=== PATIENT | male | born 1995 | race African-American/Black ===

== ENCOUNTER 2016-11-13 19:14 | Emergency (ER) | payer OTHER ==
--- NOTE | 2016-11-13 20:17 | EDDOCDS ---
Physician Documentation [facility] Name: Errol Rudd Age: 21 yrs Sex: Male : 1995 Arrival Date: 11/13/2016 Time: 19:14 Bed Triage 1 Private MD: Other - Complete Info On Cds Disposition: 11/13/16 20:11 Discharged to Home/Self Care. Impression: Encounter for issue of repeat prescription. - Condition is Stable. - Discharge Instructions: Medicine Refill at the Emergency Department. - Prescriptions for Seroquel 25 mg Oral tablet - take 1 tablet by ORAL route at bedtime; 3 tablet. - Medication Reconciliation, Local Pharmacy Hours form. - Follow up: Hugh Cristobal [facility]; When: 2 - 3 days; Reason: Recheck today's complaints, Continuance of care. - Problem is new. - Symptoms have improved. - Notes: FOLLOW UP WITH YOUR DOCTOR ON WEDNESDAY Historical: - Allergies: no known allergies; - Home Meds: 1. Seroquel 25 mg Oral tab 1 tab bedtime (Last dose: 11/12/2016 20:00) - PMHx: Anxiety; - PSHx: none; - Social history: Smoking status: Patient states was never smoker of tobacco. Patient/guardian denies using alcohol, street drugs, No barriers to communication noted, The patient speaks fluent Ghanaian, Speaks appropriately for age. - Family history: No immediate family members are acutely ill. - : The pt / caregiver states he / she is not on anticoagulants. Home medication list is obtained from the patient. - Exposure Risk Screening:: None identified. Vital Signs: 11/13 19:17 BP 122 / 71; Pulse 88; Resp 16; Temp 96.4(T); Pulse Ox 100% on R/A; Weight 89.54 kg / sew 197.4 lbs (M); Height 5 ft. 10 in. (177.80 cm); Pain 0/10; 19:17 Body Mass Index 28.32 (89.54 kg, 177.80 cm) sew Signatures: Philipp Chairez, RPA-C RPA-Cck7 Stefany Rodriguez RN RN ttb Francisco Savage RN RN nn1 MTDD
--- NOTE | 2016-11-13 20:17 | EDDOCDS ---
Nurse's Notes [facility] Name: Errol Rudd Age: 21 yrs Sex: Male : 1995 Arrival Date: 11/13/2016 Time: 19:14 Bed Triage 1 Private MD: Adan - Complete Info On Cds Diagnosis: Encounter for issue of repeat prescription Presentation: 11/13 19:35 Presenting complaint: Patient states: refill of seroquel needed. Pt sees PA at [facility] and told to get refill when needed. Closed now. Adult Sepsis Screening: The patient does not have new or worsening altered mentation. Patient's respiratory rate is less than 22. Systolic blood pressure is greater than 100. Patient has a qSOFA score of 0- Negative Sepsis Screen. Suicide/Homicide risk assessment- the patient denies having any suicidal and/or homicidal ideations and does not present with any other emotional, behavioral or mental health complaints. 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 Transition of care: patient was not received from another setting of care. 19:35 Acuity: AQUILES Level 5 ttb 19:35 Method Of Arrival: Walkin/Carried/Asstd ttb Triage Assessment: 19:36 General: Appears in no apparent distress, well nourished, well groomed, Behavior is ttb appropriate for age, cooperative, pleasant. Pain: Denies pain. HIV screening NA for this visit Offered previously. Neurological: Level of Consciousness is awake, alert. Cardiovascular: Chest pain is denied. Respiratory: No deficits noted. Derm: Skin is normal. Historical: - Allergies: no known allergies; - Home Meds: 1. Seroquel 25 mg Oral tab 1 tab bedtime (Last dose: 11/12/2016 20:00) - PMHx: Anxiety; - PSHx: none; - Social history: Smoking status: Patient states was never smoker of tobacco. Patient/guardian denies using alcohol, street drugs, No barriers to communication noted, The patient speaks fluent Mauritanian, Speaks appropriately for age. - Family history: No immediate family members are acutely ill. - : The pt / caregiver states he / she is not on anticoagulants. Home medication list is obtained from the patient. - Exposure Risk Screening:: None identified. Screenin:15 Screening information is obtained from the patient. Fall risk: No risks identified. nn1 Assistance ADL's: requires no assistance with activities of daily living. Abuse/DV Screen: The patient / caregiver reports he/she is: not in a situation that causes fear, pain or injury. Nutritional screening: No deficits noted. Advance Directives: There is no active DNR order. home support is adequate. Assessment: 20:14 General: Appears in no apparent distress, comfortable, Behavior is appropriate for age, nn1 cooperative. Pain: Denies pain. Neurological: Level of Consciousness is awake, alert, obeys commands, Oriented to person, place, time. Respiratory: Airway is patent Respiratory effort is even, unlabored, Respiratory pattern is regular, symmetrical. Derm: Skin is pink, warm & dry. Vital Signs: 19:17 BP 122 / 71; Pulse 88; Resp 16; Temp 96.4(T); Pulse Ox 100% on R/A; Weight 89.54 kg sew (M); Height 5 ft. 10 in. (177.80 cm); Pain 0/10; 19:17 Body Mass Index 28.32 (89.54 kg, 177.80 cm) [facility] Vitals: 19:17 Log In Time: November 13, 2016 at 19:12. [facility] ED Course: 19:16 Patient visited by Annabel Weiss. sew 19:16 Patient moved to Waiting sew 19:17 Other - Complete Info On Cds is Private Physician. sew 19:18 Patient visited by Annabel Weiss. sew 19:18 Patient moved to Pre RCE sew 19:35 Triage Initiated ttb 19:38 Patient moved to Triage 1 ttb 19:57 [facility] ck7 19:57 Regino Matute DO is Attending Physician. ck7 19:58 Patient visited by Philipp Chairez RPA-C. ck7 20:11 Hugh Cristobal [facility] is Referral Physician. ck7 20:15 No IV's were initiated during this patient's visit. No procedures done that require nn1 assistance. 20:16 The patient / caregiver is instructed regarding the plan of care and ED course. nn1 Order Results: There are currently no results for this order. Outcome: 20:11 Discharge ordered by Provider. ck7 20:15 Discharge Assessment: Patient awake, alert and oriented x 3. No cognitive and/or nn1 functional deficits noted. Patient verbalized understanding of disposition instructions. patient administered narcotics - no. The following High Risk Discharge criteria are identified: None. Discharged to home ambulatory. Condition: good Condition: stable. No special radiology studies were completed. Property :Personal belongings accompany Pt. 20:16 Patient left the ED. nn1 Signatures: Philipp Chairez, GRACEC RPA-Cck7 Annabel Weiss Teresa, RN RN Francisco GeeRN RN nn1 MTDD
--- NOTE | 2016-11-15 21:17 | EDDOCDS ---
Physician Documentation [facility] Name: Errol Rudd Age: 21 yrs Sex: Male : 1995 Arrival Date: 11/13/2016 Time: 19:14 Bed Triage 1 Private MD: Adan - Complete Info On Cds Disposition: 11/13/16 20:11 Discharged to Home/Self Care. Impression: Encounter for issue of repeat prescription. - Condition is Stable. - Discharge Instructions: Medicine Refill at the Emergency Department. - Prescriptions for Seroquel 25 mg Oral tablet - take 1 tablet by ORAL route at bedtime; 3 tablet. - Medication Reconciliation, Local Pharmacy Hours form. - Follow up: Hugh Cristobal [facility]; When: 2 - 3 days; Reason: Recheck today's complaints, Continuance of care. - Problem is new. - Symptoms have improved. - Notes: FOLLOW UP WITH YOUR DOCTOR ON WEDNESDAY Historical: - Allergies: no known allergies; - Home Meds: 1. Seroquel 25 mg Oral tab 1 tab bedtime (Last dose: 11/12/2016 20:00) - PMHx: Anxiety; - PSHx: none; - Social history: Smoking status: Patient states was never smoker of tobacco. Patient/guardian denies using alcohol, street drugs, No barriers to communication noted, The patient speaks fluent Honduran, Speaks appropriately for age. - Family history: No immediate family members are acutely ill. - : The pt / caregiver states he / she is not on anticoagulants. Home medication list is obtained from the patient. - Exposure Risk Screening:: None identified. Vital Signs: 11/13 19:17 BP 122 / 71; Pulse 88; Resp 16; Temp 96.4(T); Pulse Ox 100% on R/A; Weight 89.54 kg / sew 197.4 lbs (M); Height 5 ft. 10 in. (177.80 cm); Pain 0/10; 19:17 Body Mass Index 28.32 (89.54 kg, 177.80 cm) sew MDM: 11/14 11:32 T-Sheet-- Draft Copy was scanned into [employer] and attached to record. gb Signatures: Mary Freeman, Reg Reg gb Philipp Chairez, RPA-C RPA-Cck7 Stefany Rodriguez, RN RN ttb Francisco Savage RN RN nn1 The chart was reviewed and I authenticate all verbal orders and agree with the evaluation and treatment provided.Attachments: 11:32 T-Sheet-- Draft Copy gb Chart Complete MTDD
--- NOTE | 2016-11-15 21:17 | EDDOCDS ---
Nurse's Notes [facility] Name: Errol Rudd Age: 21 yrs Sex: Male : 1995 Arrival Date: 11/13/2016 Time: 19:14 Bed Triage 1 Private MD: Adan - Complete Info On Cds Diagnosis: Encounter for issue of repeat prescription Presentation: 11/13 19:35 Presenting complaint: Patient states: refill of seroquel needed. Pt sees PA at [facility] and told to get refill when needed. Closed now. Adult Sepsis Screening: The patient does not have new or worsening altered mentation. Patient's respiratory rate is less than 22. Systolic blood pressure is greater than 100. Patient has a qSOFA score of 0- Negative Sepsis Screen. Suicide/Homicide risk assessment- the patient denies having any suicidal and/or homicidal ideations and does not present with any other emotional, behavioral or mental health complaints. 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 Transition of care: patient was not received from another setting of care. 19:35 Acuity: AQUILES Level 5 ttb 19:35 Method Of Arrival: Walkin/Carried/Asstd ttb Triage Assessment: 19:36 General: Appears in no apparent distress, well nourished, well groomed, Behavior is ttb appropriate for age, cooperative, pleasant. Pain: Denies pain. HIV screening NA for this visit Offered previously. Neurological: Level of Consciousness is awake, alert. Cardiovascular: Chest pain is denied. Respiratory: No deficits noted. Derm: Skin is normal. Historical: - Allergies: no known allergies; - Home Meds: 1. Seroquel 25 mg Oral tab 1 tab bedtime (Last dose: 11/12/2016 20:00) - PMHx: Anxiety; - PSHx: none; - Social history: Smoking status: Patient states was never smoker of tobacco. Patient/guardian denies using alcohol, street drugs, No barriers to communication noted, The patient speaks fluent Persian, Speaks appropriately for age. - Family history: No immediate family members are acutely ill. - : The pt / caregiver states he / she is not on anticoagulants. Home medication list is obtained from the patient. - Exposure Risk Screening:: None identified. Screenin:15 Screening information is obtained from the patient. Fall risk: No risks identified. nn1 Assistance ADL's: requires no assistance with activities of daily living. Abuse/DV Screen: The patient / caregiver reports he/she is: not in a situation that causes fear, pain or injury. Nutritional screening: No deficits noted. Advance Directives: There is no active DNR order. home support is adequate. Assessment: 20:14 General: Appears in no apparent distress, comfortable, Behavior is appropriate for age, nn1 cooperative. Pain: Denies pain. Neurological: Level of Consciousness is awake, alert, obeys commands, Oriented to person, place, time. Respiratory: Airway is patent Respiratory effort is even, unlabored, Respiratory pattern is regular, symmetrical. Derm: Skin is pink, warm & dry. Vital Signs: 19:17 BP 122 / 71; Pulse 88; Resp 16; Temp 96.4(T); Pulse Ox 100% on R/A; Weight 89.54 kg sew (M); Height 5 ft. 10 in. (177.80 cm); Pain 0/10; 19:17 Body Mass Index 28.32 (89.54 kg, 177.80 cm) [facility] Vitals: 19:17 Log In Time: November 13, 2016 at 19:12. sew ED Course: 19:16 Patient visited by Annabel Weiss. sew 19:16 Patient moved to Waiting sew 19:17 Other - Complete Info On Cds is Private Physician. sew 19:18 Patient visited by Annabel Weiss. sew 19:18 Patient moved to Pre RCE sew 19:35 Triage Initiated ttb 19:38 Patient moved to Triage 1 ttb 19:57 [facility] 19:57 Regino Matute DO is Attending Physician. ck7 19:58 Patient visited by Philipp Chairez RPA-C. ck7 20:11 Hugh Cristobal [facility] is Referral Physician. ck7 20:15 No IV's were initiated during this patient's visit. No procedures done that require nn1 assistance. 20:16 The patient / caregiver is instructed regarding the plan of care and ED course. nn1 11/14 11:32 T-Sheet-- Draft Copy was scanned into [employer] and attached to record. gb Order Results: There are currently no results for this order. Outcome: 02/10 20:11 Discharge ordered by Provider. ck7 20:15 Discharge Assessment: Patient awake, alert and oriented x 3. No cognitive and/or nn1 functional deficits noted. Patient verbalized understanding of disposition instructions. patient administered narcotics - no. The following High Risk Discharge criteria are identified: None. Discharged to home ambulatory. Condition: good Condition: stable. No special radiology studies were completed. Property :Personal belongings accompany Pt. 20:16 Patient left the ED. nn1 Signatures: Mary Freeman, Reg Reg Philipp Davenport, RPA-C RPA-Cck7 Annabel Weiss Teresa, RN RN ttb Francisco SavageRN RN nn1 Chart Complete MTDD
--- NOTE | 2016-11-15 21:17 | EDDOCDS ---
Physician Documentation [facility] Name: Errol Rudd Age: 21 yrs Sex: Male : 1995 Arrival Date: 11/13/2016 Time: 19:14 Bed Triage 1 Private MD: Adan - Complete Info On Cds Disposition: 11/13/16 20:11 Discharged to Home/Self Care. Impression: Encounter for issue of repeat prescription. - Condition is Stable. - Discharge Instructions: Medicine Refill at the Emergency Department. - Prescriptions for Seroquel 25 mg Oral tablet - take 1 tablet by ORAL route at bedtime; 3 tablet. - Medication Reconciliation, Local Pharmacy Hours form. - Follow up: Hugh Cristobal [facility]; When: 2 - 3 days; Reason: Recheck today's complaints, Continuance of care. - Problem is new. - Symptoms have improved. - Notes: FOLLOW UP WITH YOUR DOCTOR ON WEDNESDAY Historical: - Allergies: no known allergies; - Home Meds: 1. Seroquel 25 mg Oral tab 1 tab bedtime (Last dose: 11/12/2016 20:00) - PMHx: Anxiety; - PSHx: none; - Social history: Smoking status: Patient states was never smoker of tobacco. Patient/guardian denies using alcohol, street drugs, No barriers to communication noted, The patient speaks fluent Argentine, Speaks appropriately for age. - Family history: No immediate family members are acutely ill. - : The pt / caregiver states he / she is not on anticoagulants. Home medication list is obtained from the patient. - Exposure Risk Screening:: None identified. Vital Signs: 11/13 19:17 BP 122 / 71; Pulse 88; Resp 16; Temp 96.4(T); Pulse Ox 100% on R/A; Weight 89.54 kg / sew 197.4 lbs (M); Height 5 ft. 10 in. (177.80 cm); Pain 0/10; 19:17 Body Mass Index 28.32 (89.54 kg, 177.80 cm) sew MDM: 11/14 11:32 T-Sheet-- Draft Copy was scanned into [employer] and attached to record. gb Signatures: Mary Freeman, Reg Reg gb Philipp Chairez, RPA-C RPA-Cck7 Stefany Rodriguez, RN RN ttb Francisco Savage RN RN nn1 The chart was reviewed and I authenticate all verbal orders and agree with the evaluation and treatment provided.Attachments: 11:32 T-Sheet-- Draft Copy gb Chart Complete MTDD
== END 2016-11-13 20:16 | disposition home or self-care (01) ==
LOC: M ED 19:14
DX: Z76.0 Encounter for issue of repeat prescription (principal); F41.9 Anxiety disorder, unspecified; Z79.899 Other long term (current) drug therapy

== ENCOUNTER 2017-01-16 15:21 | Emergency (ER) | payer OTHER ==
[~2017-01-16] VITALS: Ht 177.8 cm; Wt 89.4 kg
[2017-01-16 15:29] VITALS: BP 142/69
[2017-01-16] MEDS ORDERED: QUET1TAB7 PO (15:33)
[2017-01-16] MEDS ORDERED: SERO1TAB3 PO (16:08)
== END 2017-01-16 16:21 | disposition home or self-care (01) ==
LOC: M ED 16:18
DX: Z76.0 Encounter for issue of repeat prescription (principal)